=== PATIENT | male | born 1940 | race Two or more races ===

== ENCOUNTER 2017-08-25 22:07 | Inpatient (IN) | payer OTHER ==
[~2017-08-25] VITALS: Ht 165.1 cm; Wt 86.6 kg
[~2017-08-25 22:07] MED LIST: ASPI81CH43 PO; FLOMAX; GLYB5TAB8 PO; LISI-275 PO; METF-370 PO; METO-5 PO; OMEP20CA74 PO; SIMV-13 PO
[2017-08-25] MEDS ORDERED: ONDANSETRON HCL 4 MG/2 ML VIAL IV ONE (22:30)
[2017-08-25] MEDS ORDERED: ASPirin 81 mg TAB PO ONE (22:30)
[2017-08-25] MEDS ORDERED: HYDROmorphone HCL 2 MG/ML VL IV ONE (22:30)
[2017-08-25 22:48] LABS: Basophils # (auto) 0 uL; Basophils % (auto) 0.2 % (0.0-2.0); Eosinophils # (auto) 0 uL; Eosinophils % (auto) 0.1 % (0.0-7.0); Hematocrit 40.7 % (41.0-53.0); Hemoglobin 13.4 g/dL (13.5-17.5); Lymphocytes # (auto) 1.1 uL; Lymphocytes % (auto) 9.7 % (10.0-50.0); Mean Corpuscular Hemoglobin 29.7 pg (28.0-32.0); Mean Corpuscular Volume 89.9 fL (80.0-100.0); Monocytes # (auto) 0.4 uL; Monocytes % (auto) 3.2 % (0.0-12.0); Neutrophils # (auto) 9.7 uL; Neutrophils % (auto) 86.8 % (37.0-80.0); Platelet Count (auto) 287 10^3/uL (140-450); Red Blood Cells 4.52 10^6/uL (4.5-5.90); Red Cell Distribution Width 13.8 % (11.8-14.3); White Blood Cell 11.2 10^3/uL (4.4-10.8)
[2017-08-25 23:02] LABS: INR 0.99 (0.9-1.15); Partial Thromboplastin Time 26.8 sec (22.64-33.71); Prothrombin Time 10.8 sec (9.37-12.3)
[2017-08-25 23:03] LABS: Albumin 4.1 g/dL (3.4-5.0); Calcium 9.7 mg/dL (8.5-10.1); Magnesium 2.3 mg/dL (1.6-2.6); Potassium 4.1 mmol/L (3.5-5.1)
[2017-08-25 23:08] LABS: Bilirubin, Total 0.7 mg/dL (0.2-1.0); Total Protein 8.5 g/dL (6.4-8.2)
[2017-08-26] MEDS ORDERED: HYDROmorphone HCL 2 MG/ML VL IV ONE (01:30)
[2017-08-26] MEDS ORDERED: ONDANSETRON HCL 4 MG/2 ML VIAL IV ONE (01:30)
[2017-08-26] MEDS ORDERED: DEXTROSE (50%) 50ML SYRG IV PRN (04:15)
[2017-08-26] MEDS ORDERED: AZITHROMYCIN 500MG/ 250ML 250 ML IV ONE (04:30)
[2017-08-26 04:51] LABS: Basophils # (auto) 0 uL; Basophils % (auto) 0.1 % (0.0-2.0); Eosinophils # (auto) 0 uL; Hematocrit 41.2 % (41.0-53.0); Hemoglobin 13.4 g/dL (13.5-17.5); Lymphocytes # (auto) 0.7 uL; Lymphocytes % (auto) 5.9 % (10.0-50.0); Mean Corpuscular Hemoglobin 29.7 pg (28.0-32.0); Mean Corpuscular Hgb Conc. 32.5 g/dL (32.0-36.0); Mean Corpuscular Volume 91.2 fL (80.0-100.0); Monocytes # (auto) 0.7 uL; Monocytes % (auto) 6.5 % (0.0-12.0); Neutrophils # (auto) 9.8 uL; Neutrophils % (auto) 87.5 % (37.0-80.0); Platelet Count (auto) 268 10^3/uL (140-450); Red Blood Cells 4.52 10^6/uL (4.5-5.90); Red Cell Distribution Width 13.9 % (11.8-14.3); White Blood Cell 11.2 10^3/uL (4.4-10.8)
[2017-08-26] MEDS: HYDROcodone-ACET 5/325MG TAB PO PRN ×2 (06:16→11:30)
[2017-08-26] MEDS ORDERED: AZITHROMYCIN 250 MG TAB PO ONE (06:30)
[2017-08-26] MEDS ORDERED: InsuLIN REG 1unit/0.01ml Soln (100units/ml) SC SCH ×2 (07:00→22:00)
[2017-08-26] MEDS ORDERED: ACCU-CHEK COMFORT CURVE STRIP VI SCH (07:00)
[2017-08-26 07:07] LABS: BUN/Creatinine Ratio 20.3; Calcium 9.6 mg/dL (8.5-10.1); Potassium 4.7 mmol/L (3.5-5.1)
[2017-08-26] MEDS: ACETAMINOPHEN 500 MG TAB PO PRN (07:56)
[2017-08-26] MEDS ORDERED: ADENOSINE 76 MG in GIVE UN-DILUTED 0 ML IV ONE (08:30)
[2017-08-26 09:10] VITALS: BP 173/93
[2017-08-26 09:48] LABS: Urine Bacteria FEW /hpf (None Seen); Urine Blood Negative /uL (Negative); Urine Mucus FEW (None Seen); Urine Specific Gravity 1.026 (1.001-1.035); Urine WBC 2 /hpf (0 - 3)
[2017-08-26] MEDS: ASPirin-EC 81 mg tab PO SCH (10:17)
[2017-08-26] MEDS: LISINOPRIL 5 MG TAB PO SCH (10:17)
[2017-08-26] MEDS: FAMOTIDINE (10MG/ML) 2ML VL IV SCH (13:10)
[2017-08-26] MEDS: MORPHINE SULFATE 10 MG/ML INJ 1ML SDV IV PRN (15:36)
[2017-08-26] MEDS ORDERED: METOPROLOL TARTRATE 1MG/1ML-5ML VIAL IV PRN (16:15)
[2017-08-26 17:00] VITALS: BP 163/82
[2017-08-26] MEDS: D5W/SOD CHL 0.45% 1,000 ML IV SCH (17:15)
[2017-08-26] MEDS: cefTRIAXone 1GM/10ml IVPUSH 10 ML IV SCH (17:15)
[2017-08-26] MEDS: metroNIDAZOLE 500MG/100ML 100 ML IV SCH ×2 (17:16→23:53)
[2017-08-26] MEDS: TAMSULOSIN HYDROCHLORIDE 0.4 MG CAP PO SCH (18:00)
[2017-08-26 20:00] VITALS: BP 131/81
[2017-08-26 21:30] VITALS: BP 131/81
[2017-08-27] VITALS (34 sets, daily range): BP systolic 102–148; BP diastolic 51–85
[2017-08-27] MEDS: D5W/SOD CHL 0.45% 1,000 ML IV SCH ×3 (01:23→18:15)
[2017-08-27] MEDS: ACETAMINOPHEN 500 MG TAB PO PRN (05:02)
[2017-08-27] MEDS: MORPHINE SULFATE 10 MG/ML INJ 1ML SDV IV PRN ×2 (05:33→14:46)
[2017-08-27 06:22] LABS: Basophils # (auto) 0 uL; Basophils % (auto) 0.3 % (0.0-2.0); Eosinophils # (auto) 0 uL; Hematocrit 42.8 % (41.0-53.0); Hemoglobin 14.2 g/dL (13.5-17.5); Lymphocytes % (auto) 11.3 % (10.0-50.0); Mean Corpuscular Hemoglobin 29.9 pg (28.0-32.0); Mean Corpuscular Hgb Conc. 33.1 g/dL (32.0-36.0); Mean Corpuscular Volume 90.6 fL (80.0-100.0); Monocytes # (auto) 1.3 uL; Monocytes % (auto) 14.8 % (0.0-12.0); Neutrophils # (auto) 6.4 uL; Neutrophils % (auto) 73.6 % (37.0-80.0); Platelet Count (auto) 265 10^3/uL (140-450); Red Blood Cells 4.73 10^6/uL (4.5-5.90); Red Cell Distribution Width 14.3 % (11.8-14.3); White Blood Cell 8.7 10^3/uL (4.4-10.8)
[2017-08-27 06:51] LABS: BUN/Creatinine Ratio 17.9; Potassium 3.9 mmol/L (3.5-5.1)
[2017-08-27] MEDS: metroNIDAZOLE 500MG/100ML 100 ML IV SCH ×2 (09:33→16:24)
[2017-08-27] MEDS: cefTRIAXone 1GM/10ml IVPUSH 10 ML IV SCH (09:36)
[2017-08-27] MEDS ORDERED: AZITHROMYCIN 250 MG TAB PO SCH (10:00)
[2017-08-27] MEDS: LISINOPRIL 5 MG TAB PO SCH (10:00)
[2017-08-27] MEDS: ASPirin-EC 81 mg tab PO SCH (10:00)
[2017-08-27] MEDS: FAMOTIDINE (10MG/ML) 2ML VL IV SCH (10:00)
[2017-08-27] MEDS ORDERED: SUCCINYLCHOLINE CHLORIDE 20 MG/ML 10ML VIAL IV ONE (11:15)
[2017-08-27] MEDS ORDERED: fentaNYL CITRATE 5 ML ONE (11:24)
[2017-08-27] MEDS ORDERED: MIDAZOLAM HCL 1MG/1ML-2 ML VIAL ONE ×3 (11:24→12:21)
[2017-08-27] MEDS ORDERED: ROCURONIUM 10MG/ML 10ML VIAL IV ONE (11:30)
[2017-08-27] MEDS ORDERED: PROPOFOL 10 MG/ML 20 ML IV ONE (11:36)
[2017-08-27] MEDS ORDERED: MIDAZOLAM DRIP 50 mg/50mL 50 ML IV ONE (13:00)
[2017-08-27] MEDS ORDERED: MIDAZOLAM DRIP 50 mg/50mL 50 ML IV SCH (14:57)
[2017-08-27] MEDS: TAMSULOSIN HYDROCHLORIDE 0.4 MG CAP PO SCH (18:00)
[2017-08-27] MEDS ORDERED: SODIUM CHLORIDE 0.9% 500 ML IV ONE (18:15)
[2017-08-28] VITALS (46 sets, daily range): BP systolic 100–172; BP diastolic 41–94
[2017-08-28] MEDS: metroNIDAZOLE 500MG/100ML 100 ML IV SCH ×3 (00:21→17:10)
[2017-08-28 04:08] LABS: Basophils # (auto) 0 uL; Basophils % (auto) 0.4 % (0.0-2.0); Eosinophils # (auto) 0 uL; Hematocrit 38.3 % (41.0-53.0); Hemoglobin 12.7 g/dL (13.5-17.5); Lymphocytes # (auto) 0.9 uL; Lymphocytes % (auto) 11.8 % (10.0-50.0); Mean Corpuscular Hemoglobin 29.8 pg (28.0-32.0); Mean Corpuscular Hgb Conc. 33.1 g/dL (32.0-36.0); Mean Corpuscular Volume 90.1 fL (80.0-100.0); Monocytes # (auto) 1.1 uL; Monocytes % (auto) 13.5 % (0.0-12.0); Neutrophils # (auto) 5.9 uL; Neutrophils % (auto) 74.3 % (37.0-80.0); Nucleated Red Blood Cells % 0.1 %; Platelet Count (auto) 186 10^3/uL (140-450); Red Blood Cells 4.25 10^6/uL (4.5-5.90); Red Cell Distribution Width 13.7 % (11.8-14.3); White Blood Cell 7.9 10^3/uL (4.4-10.8)
[2017-08-28 04:42] LABS: Albumin 2.8 g/dL (3.4-5.0); BUN/Creatinine Ratio 25.3; Bilirubin, Total 1.2 mg/dL (0.2-1.0); Calcium 8.3 mg/dL (8.5-10.1); Potassium 3.8 mmol/L (3.5-5.1); Total Protein 6.8 g/dL (6.4-8.2)
[2017-08-28] MEDS: D5W/SOD CHL 0.45% 1,000 ML IV SCH (05:45)
[2017-08-28] MEDS: ALBUMIN 25% 50 ML IV SCH ×3 (09:13→18:10)
[2017-08-28] MEDS: cefTRIAXone 1GM/10ml IVPUSH 10 ML IV SCH (09:14)
[2017-08-28] MEDS: LISINOPRIL 5 MG TAB PO SCH (10:00)
[2017-08-28] MEDS: ASPirin-EC 81 mg tab PO SCH (10:00)
[2017-08-28] MEDS: MORPHINE SULFATE 10 MG/ML INJ 1ML SDV IV PRN ×2 (10:11→23:42)
[2017-08-28] MEDS: FAMOTIDINE (10MG/ML) 2ML VL IV SCH (10:27)
[2017-08-28] MEDS ORDERED: FUROSEMIDE 40 MG/4 ML VIAL IV ONE (10:30)
[2017-08-28] MEDS ORDERED: D5W/SOD CHL 0.45% 1,000 ML IV SCH (10:30)
[2017-08-28] MEDS: POTASSIUM CHL 20MEQ/100ML 100 ML IV SCH ×3 (10:41→18:36)
[2017-08-28] MEDS ORDERED: METOLAZONE 5 MG TAB PO ONE (15:30)
[2017-08-28] MEDS: TAMSULOSIN HYDROCHLORIDE 0.4 MG CAP PO SCH (18:00)
[2017-08-28] MEDS ORDERED: PPN PER PHARMACY 0 ML IV SCH (18:30)
[2017-08-28] MEDS ORDERED: AMINO ACID ELECTROLYTE INFUSIO 1,000 ML IV SCH (20:30)
[2017-08-28] MEDS ORDERED: SODIUM PHOSP 40 MEQ in D5W 5% 250 ML IV ONE (20:30)
[2017-08-28] MEDS: FUROSEMIDE 40 MG/4 ML VIAL IV SCH (22:00)
[2017-08-28 23:03] LABS: Basophils # (auto) 0 uL; Basophils % (auto) 0.4 % (0.0-2.0); Eosinophils # (auto) 0 uL; Hematocrit 35.6 % (41.0-53.0); Hemoglobin 11.9 g/dL (13.5-17.5); Lymphocytes # (auto) 0.8 uL; Lymphocytes % (auto) 8.7 % (10.0-50.0); Mean Corpuscular Hemoglobin 30.2 pg (28.0-32.0); Mean Corpuscular Hgb Conc. 33.6 g/dL (32.0-36.0); Mean Corpuscular Volume 89.9 fL (80.0-100.0); Monocytes # (auto) 1.1 uL; Monocytes % (auto) 11.5 % (0.0-12.0); Neutrophils # (auto) 7.2 uL; Neutrophils % (auto) 79.4 % (37.0-80.0); Platelet Count (auto) 173 10^3/uL (140-450); Red Blood Cells 3.96 10^6/uL (4.5-5.90); Red Cell Distribution Width 13.8 % (11.8-14.3); White Blood Cell 9.1 10^3/uL (4.4-10.8)
[2017-08-29] VITALS (18 sets, daily range): BP systolic 35–148; BP diastolic 52–101
[2017-08-29] MEDS: metroNIDAZOLE 500MG/100ML 100 ML IV SCH ×4 (00:08→23:57)
[2017-08-29 04:30] LABS: Albumin 3.3 g/dL (3.4-5.0); BUN/Creatinine Ratio 25.3; Bilirubin, Total 0.9 mg/dL (0.2-1.0); Calcium 8.2 mg/dL (8.5-10.1); Magnesium 2.3 mg/dL (1.6-2.6); Phosphorus 3.3 mg/dL (2.5-4.90); Potassium 3.9 mmol/L (3.5-5.1); Pre Albumin 7.8 mg/dL (20.0-40.0); Total Protein 7.1 g/dL (6.4-8.2)
[2017-08-29] MEDS: POTASSIUM CHL 20MEQ/100ML 100 ML IV SCH ×2 (06:00→18:41)
[2017-08-29] MEDS: FUROSEMIDE 40 MG/4 ML VIAL IV SCH ×2 (06:00→18:00)
[2017-08-29 08:00] LABS: Basophils # (auto) 0.1 uL; Basophils % (auto) 1.1 % (0.0-2.0); Eosinophils # (auto) 0 uL; Eosinophils % (auto) 0.1 % (0.0-7.0); Hematocrit 37.3 % (41.0-53.0); Hemoglobin 12.5 g/dL (13.5-17.5); Lymphocytes # (auto) 1.1 uL; Lymphocytes % (auto) 11.1 % (10.0-50.0); Mean Corpuscular Hemoglobin 30.1 pg (28.0-32.0); Mean Corpuscular Hgb Conc. 33.5 g/dL (32.0-36.0); Mean Corpuscular Volume 89.9 fL (80.0-100.0); Monocytes # (auto) 1.1 uL; Monocytes % (auto) 10.7 % (0.0-12.0); Neutrophils # (auto) 7.7 uL; Platelet Count (auto) 174 10^3/uL (140-450); Red Blood Cells 4.15 10^6/uL (4.5-5.90); Red Cell Distribution Width 13.8 % (11.8-14.3)
[2017-08-29] MEDS: cefTRIAXone 1GM/10ml IVPUSH 10 ML IV SCH (09:38)
[2017-08-29] MEDS: FAMOTIDINE (10MG/ML) 2ML VL IV SCH (09:38)
[2017-08-29] MEDS: ASPirin-EC 81 mg tab PO SCH (09:38)
[2017-08-29] MEDS: LISINOPRIL 5 MG TAB PO SCH (09:40)
[2017-08-29] MEDS: MORPHINE SULFATE 10 MG/ML INJ 1ML SDV IV PRN ×2 (09:41→21:15)
[2017-08-29] MEDS: METOCLOPRAMIDE HCL 5MG/ml INJ 2ml VIAL IV SCH (18:43)
[2017-08-29] MEDS: TAMSULOSIN HYDROCHLORIDE 0.4 MG CAP PO SCH (18:43)
[2017-08-29] MEDS ORDERED: PPN PER PHARMACY IV NR ×10 (20:00)
[2017-08-29] MEDS ORDERED: FUROSEMIDE 40 MG/4 ML VIAL IV SCH (22:00)
[2017-08-30 04:00] VITALS: BP 124/50
[2017-08-30] MEDS: POTASSIUM CHL 20MEQ/100ML 100 ML IV SCH ×2 (05:37→17:58)
[2017-08-30 05:56] LABS: Albumin 3.1 g/dL (3.4-5.0); BUN/Creatinine Ratio 39.2; Bilirubin, Total 0.9 mg/dL (0.2-1.0); Calcium 8.6 mg/dL (8.5-10.1); Magnesium 2.5 mg/dL (1.6-2.6); Phosphorus 2.1 mg/dL (2.5-4.90); Potassium 3.1 mmol/L (3.5-5.1); Total Protein 7.6 g/dL (6.4-8.2)
[2017-08-30 08:00] VITALS: BP 136/69
[2017-08-30] MEDS: FAMOTIDINE (10MG/ML) 2ML VL IV SCH (09:02)
[2017-08-30] MEDS: METOCLOPRAMIDE HCL 5MG/ml INJ 2ml VIAL IV SCH ×2 (09:02)
[2017-08-30] MEDS: FUROSEMIDE 40 MG/4 ML VIAL IV SCH ×2 (09:02→17:59)
[2017-08-30] MEDS: cefTRIAXone 1GM/10ml IVPUSH 10 ML IV SCH (09:03)
[2017-08-30] MEDS: metroNIDAZOLE 500MG/100ML 100 ML IV SCH (09:03)
[2017-08-30] MEDS: MORPHINE SULFATE 10 MG/ML INJ 1ML SDV IV PRN ×2 (09:06→18:57)
[2017-08-30] MEDS: LISINOPRIL 5 MG TAB PO SCH (10:00)
[2017-08-30] MEDS: ASPirin-EC 81 mg tab PO SCH (11:16)
[2017-08-30] MEDS ORDERED: DEXTROSE (50%) 50ML SYRG IV SCH (11:30)
[2017-08-30] MEDS ORDERED: POTASSIUM PHOSPHATE 22 MEQ in SODIUM CHL 0.9% 100 ML IV ONE (12:00)
[2017-08-30] MEDS ORDERED: POTASSIUM CHL 20MEQ/100ML 100 ML IV ONE (12:15)
[2017-08-30 12:17] VITALS: BP 112/54
[2017-08-30] MEDS ORDERED: METOCLOPRAMIDE HCL 10 MG TAB PO SCH (12:18)
[2017-08-30] MEDS: ACCU-CHEK COMFORT CURVE STRIP VI SCH ×2 (12:25→18:00)
[2017-08-30] MEDS: InsuLIN REG 1unit/0.01ml Soln (100units/ml) SC SCH ×2 (12:25→18:00)
[2017-08-30 16:12] VITALS: BP 117/60
[2017-08-30] MEDS: TAMSULOSIN HYDROCHLORIDE 0.4 MG CAP PO SCH (17:59)
[2017-08-30] MEDS ORDERED: PPN PER PHARMACY IV NR ×10 (20:00)
[2017-08-30] MEDS: HYDROcodone-ACET 5/325MG TAB PO PRN (20:02)
[2017-08-30 20:26] VITALS: BP 147/86
[2017-08-30] MEDS: CARVEDILOL 3.125 MG TAB PO SCH (22:05)
[2017-08-30] MEDS: ONDANSETRON HCL 4 MG/2 ML VIAL IV PRN (22:43)
[2017-08-31] VITALS: BP 122/60
[2017-08-31 05:57] LABS: BUN/Creatinine Ratio 39.6; Bilirubin, Total 0.6 mg/dL (0.2-1.0); Calcium 9.3 mg/dL (8.5-10.1); Magnesium 2.6 mg/dL (1.6-2.6); Phosphorus 4.1 mg/dL (2.5-4.90); Potassium 3.2 mmol/L (3.5-5.1); Total Protein 7.5 g/dL (6.4-8.2)
[2017-08-31] MEDS: InsuLIN REG 1unit/0.01ml Soln (100units/ml) SC SCH ×4 (06:00→18:05)
[2017-08-31] MEDS: POTASSIUM CHL 20MEQ/100ML 100 ML IV SCH ×2 (06:00→10:04)
[2017-08-31] MEDS: FUROSEMIDE 40 MG/4 ML VIAL IV SCH (06:11)
[2017-08-31] MEDS: ONDANSETRON HCL 4 MG/2 ML VIAL IV PRN ×2 (06:12→15:11)
[2017-08-31] MEDS: ACCU-CHEK COMFORT CURVE STRIP VI SCH ×4 (06:12→18:05)
[2017-08-31] MEDS ORDERED: POTASSIUM CHL 10% (20 MEQ/15ML) 15ml ORAL SOLN PO ONE (07:00)
[2017-08-31 08:00] VITALS: BP 151/69
[2017-08-31] MEDS ORDERED: POTASSIUM CHL 20 Meq TABLET PO ONE ×3 (08:52→11:15)
[2017-08-31] MEDS: LISINOPRIL 5 MG TAB PO SCH (10:16)
[2017-08-31] MEDS: ASPirin-EC 81 mg tab PO SCH (10:19)
[2017-08-31] MEDS: CARVEDILOL 3.125 MG TAB PO SCH ×2 (10:19→21:44)
[2017-08-31 11:52] VITALS: BP 136/61
[2017-08-31] MEDS: POTASSIUM CHL 20 Meq TABLET PO ONE ×2 (15:07→18:50)
[2017-08-31 17:25] VITALS: BP 122/77
[2017-08-31] MEDS: TAMSULOSIN HYDROCHLORIDE 0.4 MG CAP PO SCH (18:50)
[2017-08-31 22:18] VITALS: BP 121/68
[2017-09-01 04:26] VITALS: BP 128/80
[2017-09-01] MEDS: ACCU-CHEK COMFORT CURVE STRIP VI SCH ×3 (05:15→12:51)
[2017-09-01] MEDS: InsuLIN REG 1unit/0.01ml Soln (100units/ml) SC SCH ×3 (05:16→12:51)
[2017-09-01 05:35] LABS: Basophils # (auto) 0 uL; Basophils % (auto) 0.2 % (0.0-2.0); Eosinophils # (auto) 0 uL; Eosinophils % (auto) 0.2 % (0.0-7.0); Hematocrit 41.8 % (41.0-53.0); Hemoglobin 14.2 g/dL (13.5-17.5); Lymphocytes # (auto) 1.3 uL; Lymphocytes % (auto) 12.7 % (10.0-50.0); Mean Corpuscular Hemoglobin 30.3 pg (28.0-32.0); Mean Corpuscular Hgb Conc. 33.9 g/dL (32.0-36.0); Mean Corpuscular Volume 89.3 fL (80.0-100.0); Monocytes # (auto) 1.1 uL; Monocytes % (auto) 11.4 % (0.0-12.0); Neutrophils # (auto) 7.5 uL; Neutrophils % (auto) 75.5 % (37.0-80.0); Platelet Count (auto) 273 10^3/uL (140-450); Red Blood Cells 4.68 10^6/uL (4.5-5.90); Red Cell Distribution Width 13.5 % (11.8-14.3); White Blood Cell 9.9 10^3/uL (4.4-10.8)
[2017-09-01 06:10] LABS: Albumin 3.5 g/dL (3.4-5.0); BUN/Creatinine Ratio 39.6; Bilirubin, Total 0.7 mg/dL (0.2-1.0); Calcium 10.2 mg/dL (8.5-10.1); Potassium 4.2 mmol/L (3.5-5.1); Total Protein 8.4 g/dL (6.4-8.2)
[2017-09-01 09:00] VITALS: BP 96/60
[2017-09-01] MEDS: CARVEDILOL 3.125 MG TAB PO SCH (10:00)
[2017-09-01] MEDS ORDERED: FUROSEMIDE 40 MG TAB PO SCH (10:00)
[2017-09-01] MEDS ORDERED: POTASSIUM CHL 20 Meq TABLET PO SCH (10:00)
[2017-09-01] MEDS: LISINOPRIL 5 MG TAB PO SCH (10:00)
[2017-09-01] MEDS: ASPirin-EC 81 mg tab PO SCH (10:32)
[2017-09-01 13:40] VITALS: BP 113/73
[2017-09-01] MEDS ORDERED: ASP81EC PO (14:36)
[2017-09-01] MEDS ORDERED: LISI-275 PO (14:36)
[2017-09-01] MEDS ORDERED: FURO40TA4 PO (14:36)
[2017-09-01] MEDS ORDERED: CAR3125T PO (14:36)
[2017-09-01] MEDS ORDERED: ATOR20TA50 PO (14:36)
[2017-09-01] MEDS ORDERED: TAM04C PO (14:36)
[2017-09-01 16:55] VITALS: BP 113/73
== END 2017-09-01 17:30 | disposition home health service (06) | DRG 353 ==
LOC: ER 22:07 → TELE 22:08 → EDUNIT# 22:08 → TELE-WESTW 08-26 14:26 → ICU WEST 08-27 13:00 → DOU IN ICU 08-29 14:50 → CENTRAL 08-31 17:11
PROVIDERS: ADMIT Nurse Practitioner Family; ATTEND Hospitalist
PROC: 5A1935Z Respiratory Ventilation, Less than 24 Consecutive Hours (ICD-10-PCS; 2017-08-27)
PROC: 0BH17EZ Insertion of Endotracheal Airway into Trachea, Via Natural or Artificial Opening (ICD-10-PCS; 2017-08-27)
PROC: 0WQF0ZZ Repair Abdominal Wall, Open Approach (ICD-10-PCS; principal; 2017-08-27 11:15)
DX: K42.0 Umbilical hernia with obstruction, without gangrene (principal); I21.4 Non-ST elevation (NSTEMI) myocardial infarction; J96.90 Respiratory failure, unspecified, unspecified whether with hypoxia or hypercapnia; I11.0 Hypertensive heart disease with heart failure; I50.9 Heart failure, unspecified; K55.9 Vascular disorder of intestine, unspecified; I42.0 Dilated cardiomyopathy; I25.110 Atherosclerotic heart disease of native coronary artery with unstable angina pectoris; I27.20 Pulmonary hypertension, unspecified; M48.061 Spinal stenosis, lumbar region without neurogenic claudication; E11.9 Type 2 diabetes mellitus without complications; E78.5 Hyperlipidemia, unspecified; J40 Bronchitis, not specified as acute or chronic; N40.0 Benign prostatic hyperplasia without lower urinary tract symptoms; Z95.1 Presence of aortocoronary bypass graft; I45.10 Unspecified right bundle-branch block; Z79.84 Long term (current) use of oral hypoglycemic drugs; I25.5 Ischemic cardiomyopathy; R00.0 Tachycardia, unspecified
CPT/HCPCS: 36415; 36600; 71045; 74176; 80048; 80053; 81001; 82040; 82805; 82962; 83735; 83880; 84100; 84132; 84443; 84478; 84484; 85025; 85610; 85730; 87070; 87205; 93005; 93017; 93306; 94002; 94003; 96365; 96375; 96376; 97116; 97163; 97530; J0153; J0330; J1815; J2250; J2405; J2704; J3480; J3490; J7060; J7131

== ENCOUNTER 2018-03-23 14:40 | Inpatient (IN) | payer OTHER ==
[~2018-03-23] VITALS: Ht 165.1 cm; Wt 80.3 kg
[~2018-03-23 14:40] MED LIST changes: +ASP81EC PO; +ATOR20TA50 PO; +CAR3125T PO; +FURO40TA4 PO; +TAM04C PO
[2018-03-23] MEDS ORDERED: ASPirin 81 mg TAB PO ONE (15:15)
[2018-03-23 15:47] LABS: Alanine Aminotransferase 24 U/L (16-61); Albumin 3.8 g/dL (3.4-5.0); Alkaline Phosphatase 77 U/L (45-117); Anion Gap 7 (5-15); Aspartate Aminotransferase 15 U/L (15-37); BUN/Creatinine Ratio 16.9; Bilirubin, Total 0.8 mg/dL (0.2-1.0); Blood Urea Nitrogen 14 mg/dL (7-18); Calcium 8.5 mg/dL (8.5-10.1); Carbon Dioxide 24 mmol/L (21-32); Chloride 103 mmol/L (98-107); GFR African American 116 mL/min; GFR Non-African American 96 mL/min; Glucose 119 mg/dL (74-106); Potassium 4.3 mmol/L (3.5-5.1); Sodium 134 mmol/L (136-145)
[2018-03-23 15:54] LABS: Basophils # (auto) 0 uL; Basophils % (auto) 0.4 % (0.0-2.0); Eosinophils # (auto) 0 uL; Eosinophils % (auto) 0.8 % (0.0-7.0); Hematocrit 40.9 % (41.0-53.0); Hemoglobin 13.4 g/dL (13.5-17.5); Lymphocytes # (auto) 1.6 uL; Lymphocytes % (auto) 27.9 % (10.0-50.0); Mean Corpuscular Hemoglobin 29.8 pg (28.0-32.0); Mean Corpuscular Hgb Conc. 32.8 g/dL (32.0-36.0); Mean Corpuscular Volume 90.9 fL (80.0-100.0); Monocytes # (auto) 0.5 uL; Monocytes % (auto) 8.1 % (0.0-12.0); Neutrophils # (auto) 3.6 uL; Neutrophils % (auto) 62.8 % (37.0-80.0); Platelet Count (auto) 211 10^3/uL (140-450); Red Cell Distribution Width 14.5 % (11.8-14.3); White Blood Cell 5.7 10^3/uL (4.4-10.8)
[2018-03-23] MEDS ORDERED: MORPHINE SULF INJ 2 MG/ML SYRINGE 1ML IV ONE (19:45)
[2018-03-23] MEDS ORDERED: ONDANSETRON HCL 4 MG/2 ML VIAL IV ONE (19:45)
[2018-03-23 20:00] LABS: INR 0.99 (0.9-1.15); Partial Thromboplastin Time 28.2 sec (23.78-33.04); Prothrombin Time 10.6 sec (9.27-12.13)
[2018-03-23] MEDS ORDERED: ONDANSETRON HCL 4 MG/2 ML VIAL IV PRN (20:30)
[2018-03-23] MEDS ORDERED: LORazepam 0.5 MG TAB PO PRN (20:30)
[2018-03-23] MEDS ORDERED: HYDROcodone-ACET 5/325MG TAB PO PRN (20:30)
[2018-03-23] MEDS ORDERED: ACETAMINOPHEN 500 MG TAB PO PRN (20:30)
[2018-03-23] MEDS ORDERED: TEMAZEPAM 15 MG CAP PO PRN (20:30)
[2018-03-23] MEDS ORDERED: PROMETHAZINE HCL 25 MG/ML 1ML ONE (20:37)
[2018-03-23] MEDS ORDERED: PROMETHAZINE HCL 25 MG/ML 1ML IV ONE (20:45)
[2018-03-23] MEDS ORDERED: METOPROLOL TARTRATE 50 MG TAB PO SCH (22:00)
[2018-03-23] MEDS: ATORVASTATIN 20 MG TAB PO SCH (23:28)
[2018-03-23] MEDS ORDERED: FUROSEMIDE 20 MG/2 ML VIAL IV ONE (23:45)
[2018-03-23] MEDS ORDERED: MORPHINE SULF INJ 2 MG/ML SYRINGE 1ML IV PRN (23:45)
[2018-03-23] MEDS ORDERED: NITROGLYCERIN 0.4 MG SL TAB SL PRN (23:45)
[2018-03-24 02:17] VITALS: BP 115/70
[2018-03-24 02:33] VITALS: BP 115/70
[2018-03-24 05:00] VITALS: BP 130/63
[2018-03-24 07:27] LABS: Basophils # (auto) 0 uL; Basophils % (auto) 0.3 % (0.0-2.0); Eosinophils # (auto) 0.1 uL; Eosinophils % (auto) 1.4 % (0.0-7.0); Hematocrit 40.7 % (41.0-53.0); Hemoglobin 13.5 g/dL (13.5-17.5); Lymphocytes # (auto) 2.3 uL; Lymphocytes % (auto) 34.6 % (10.0-50.0); Mean Corpuscular Hemoglobin 30.5 pg (28.0-32.0); Mean Corpuscular Hgb Conc. 33.2 g/dL (32.0-36.0); Mean Corpuscular Volume 91.8 fL (80.0-100.0); Monocytes # (auto) 0.8 uL; Monocytes % (auto) 11.9 % (0.0-12.0); Neutrophils # (auto) 3.4 uL; Neutrophils % (auto) 51.8 % (37.0-80.0); Nucleated Red Blood Cells % 0.1 %; Platelet Count (auto) 187 10^3/uL (140-450); Red Blood Cells 4.43 10^6/uL (4.5-5.90); Red Cell Distribution Width 14.7 % (11.8-14.3); White Blood Cell 6.5 10^3/uL (4.4-10.8)
[2018-03-24 07:58] LABS: Potassium 4.4 mmol/L (3.5-5.1)
[2018-03-24 09:00] VITALS: BP 124/77
[2018-03-24] MEDS: HYDROmorphone HCL 2 MG/ML VL IV PRN ×2 (09:14→13:00)
[2018-03-24] MEDS ORDERED: LISINOPRIL 5 MG TAB PO SCH (10:00)
[2018-03-24] MEDS ORDERED: METOPROLOL TARTRATE 50 MG TAB PO SCH (10:00)
[2018-03-24] MEDS ORDERED: ASPirin-EC 81 mg tab PO SCH (10:00)
[2018-03-24] MEDS ORDERED: FUROSEMIDE 20 MG TAB PO SCH (10:00)
[2018-03-24] MEDS: ATORVASTATIN 20 MG TAB PO SCH (10:38)
[2018-03-24 10:55] LABS: Urine Bacteria NONE SEEN /hpf (None Seen); Urine Blood TRACE /uL (Negative); Urine Specific Gravity 1.016 (1.001-1.035); Urine WBC 46 /hpf (0 - 3)
[2018-03-24 13:00] VITALS: BP 120/74
[2018-03-24] MEDS ORDERED: TAMSULOSIN HYDROCHLORIDE 0.4 MG CAP PO SCH (18:00)
== END 2018-03-24 15:00 | disposition home or self-care (01) | DRG 391 ==
LOC: ER 14:49 → TELE 14:50 → TELE-EAST 03-24 00:47
PROVIDERS: ADMIT Nurse Practitioner Family; ATTEND Hospitalist
DX: K57.30 Diverticulosis of large intestine without perforation or abscess without bleeding (principal); I50.43 Acute on chronic combined systolic (congestive) and diastolic (congestive) heart failure; E87.1 Hypo-osmolality and hyponatremia; E11.9 Type 2 diabetes mellitus without complications; E78.5 Hyperlipidemia, unspecified; I11.0 Hypertensive heart disease with heart failure; I25.10 Atherosclerotic heart disease of native coronary artery without angina pectoris; I25.5 Ischemic cardiomyopathy; J44.9 Chronic obstructive pulmonary disease, unspecified; L29.9 Pruritus, unspecified; Z79.84 Long term (current) use of oral hypoglycemic drugs; Z79.899 Other long term (current) drug therapy; Z82.49 Family history of ischemic heart disease and other diseases of the circulatory system; Z83.3 Family history of diabetes mellitus; Z82.5 Family history of asthma and other chronic lower respiratory diseases; Z85.46 Personal history of malignant neoplasm of prostate; Z87.891 Personal history of nicotine dependence; Z92.3 Personal history of irradiation; Z95.1 Presence of aortocoronary bypass graft
CPT/HCPCS: 36415; 71046; 74176; 80048; 80053; 81001; 83036; 83735; 83880; 84443; 84484; 85025; 85610; 85730; 93005; 94761; 96374; 96375

== ENCOUNTER 2020-05-31 19:59 | Inpatient (IN) | payer OTHER ==
[~2020-05-31] VITALS: Ht 165.1 cm; Wt 90.0 kg
[~2020-05-31 19:59] MED LIST changes: -ASP81EC PO; +ASPI-394 PO
[2020-05-31 22:33] LABS: Basophils # (auto) 0 10 ^3/uL (0-0.2); Basophils % (auto) 0.6 % (0.0-2.0); Eosinophils # (auto) 0.1 10 ^3/uL (0-0.8); Eosinophils % (auto) 1.5 % (0.0-7.0); Hematocrit 35.1 % (41.0-53.0); Lymphocytes # (auto) 1.6 10 ^3/uL (0.4-5.4); Lymphocytes % (auto) 26.1 % (10.0-50.0); Mean Corpuscular Hemoglobin 30.5 pg (28.0-32.0); Mean Corpuscular Hgb Conc. 34.2 g/dL (32.0-36.0); Mean Corpuscular Volume 89.1 fL (80.0-100.0); Monocytes # (auto) 0.7 10 ^3/uL (0-1.3); Monocytes % (auto) 11.6 % (0.0-12.0); Neutrophils # (auto) 3.6 10 ^3/uL (1.6-8.6); Neutrophils % (auto) 60.2 % (37.0-80.0); Nucleated Red Blood Cells % 0.1 %; Platelet Count (auto) 199 10^3/uL (140-450); Red Blood Cells 3.94 10^6/uL (4.5-5.90); Red Cell Distribution Width 13.8 % (11.8-14.3)
[2020-05-31] MEDS ORDERED: ONDANSETRON HCL 4 MG/2 ML VIAL IV ONE (22:45)
[2020-05-31] MEDS ORDERED: MORPHINE SULFATE 4 MG/ML SYR/VIAL IV ONE (22:45)
[2020-05-31] MEDS ORDERED: ATORVASTATIN 20 MG TAB PO ONE (22:45)
[2020-05-31] MEDS ORDERED: ASPirin 81 mg TAB PO ONE (22:45)
[2020-05-31 22:48] LABS: INR 0.99 (0.9-1.15); Partial Thromboplastin Time 25.4 sec (23.0-31.2)
[2020-05-31 22:55] LABS: Alanine Aminotransferase 22 U/L (16-61); Albumin 3.6 g/dL (3.4-5.0); Anion Gap 6 (5-15); Aspartate Aminotransferase 17 U/L (15-37); BUN/Creatinine Ratio 20.5; Blood Urea Nitrogen 18 mg/dL (7-18); Calcium 9.1 mg/dL (8.5-10.1); Carbon Dioxide 25 mmol/L (21-32); Chloride 106 mmol/L (98-107); GFR African American 108 mL/min; GFR Non-African American 89 mL/min; Glucose 114 mg/dL (74-106); Potassium 4.2 mmol/L (3.5-5.1); Sodium 137 mmol/L (136-145)
[2020-05-31 23:01] LABS: Alkaline Phosphatase 83 U/L (45-117); Bilirubin, Total 0.6 mg/dL (0.2-1.0); Total Protein 7.6 g/dL (6.4-8.2)
[2020-06-01] VITALS (7 sets, daily range): BP systolic 122–135; BP diastolic 60–79
[2020-06-01] MEDS ORDERED: ACETAMINOPHEN 325 MG TAB PO PRN ×2 (00:45→03:00)
[2020-06-01] MEDS ORDERED: DEXTROSE (50%) 50ML SYRG IV PRN ×2 (00:45→03:00)
[2020-06-01] MEDS ORDERED: TEMAZEPAM 15 MG CAP PO PRN ×2 (00:45→03:00)
[2020-06-01] MEDS ORDERED: ONDANSETRON HCL 4 MG/2 ML VIAL IV PRN ×2 (00:45→03:00)
[2020-06-01] MEDS ORDERED: NITROGLYCERIN 0.4 MG SL TAB SL PRN ×2 (01:00→03:00)
[2020-06-01] MEDS ORDERED: MORPHINE SULF INJ 2 MG/ML SYRINGE 1ML IV PRN ×2 (01:00→03:00)
[2020-06-01] MEDS ORDERED: ACCU-CHEK COMFORT CURVE STRIP VI SCH (07:00)
[2020-06-01] MEDS ORDERED: InsuLIN REG 1unit/0.01ml Soln (100units/ml) SC SCH (07:00)
[2020-06-01] MEDS: InsuLIN REG 1unit/0.01ml Soln (100units/ml) SC SCH ×4 (07:00→21:52)
[2020-06-01] MEDS: ACCU-CHEK COMFORT CURVE STRIP VI SCH ×4 (07:26→21:52)
[2020-06-01] MEDS ORDERED: CARVEDILOL 3.125 MG TAB PO SCH (10:00)
[2020-06-01] MEDS ORDERED: FAMOTIDINE 20 MG TAB PO SCH (10:00)
[2020-06-01] MEDS: CARVEDILOL 3.125 MG TAB PO SCH ×2 (10:00→21:51)
[2020-06-01] MEDS ORDERED: ASPirin 81 mg TAB PO SCH (10:00)
[2020-06-01] MEDS ORDERED: ENOXAPARIN SOD 40 MG/0.4 ML SYRINGE SC SCH (10:00)
[2020-06-01] MEDS ORDERED: LISINOPRIL 5 MG TAB PO SCH (10:00)
[2020-06-01] MEDS ORDERED: FUROSEMIDE 40 MG TAB PO SCH (10:00)
[2020-06-01] MEDS: LISINOPRIL 5 MG TAB PO SCH (10:01)
[2020-06-01] MEDS: FUROSEMIDE 40 MG TAB PO SCH (10:01)
[2020-06-01] MEDS: FAMOTIDINE 20 MG TAB PO SCH ×2 (10:02→21:52)
[2020-06-01] MEDS: ASPirin 81 mg TAB PO SCH (10:02)
[2020-06-01] MEDS: ENOXAPARIN SOD 40 MG/0.4 ML SYRINGE SC SCH (10:02)
[2020-06-01] MEDS ORDERED: TAMSULOSIN HYDROCHLORIDE 0.4 MG CAP PO SCH ×2 (18:00)
[2020-06-01] MEDS ORDERED: ATORVASTATIN 20 MG TAB PO SCH ×2 (22:00)
[2020-06-02 05:00] VITALS: BP 118/60
[2020-06-02] MEDS: InsuLIN REG 1unit/0.01ml Soln (100units/ml) SC SCH ×2 (06:26→11:30)
[2020-06-02] MEDS: ACCU-CHEK COMFORT CURVE STRIP VI SCH ×2 (06:28→11:30)
[2020-06-02 08:56] VITALS: BP 133/68
[2020-06-02] MEDS: FAMOTIDINE 20 MG TAB PO SCH (10:19)
[2020-06-02] MEDS: ASPirin 81 mg TAB PO SCH (10:20)
[2020-06-02] MEDS: LISINOPRIL 5 MG TAB PO SCH (10:21)
[2020-06-02] MEDS: FUROSEMIDE 40 MG TAB PO SCH (10:22)
[2020-06-02] MEDS: CARVEDILOL 3.125 MG TAB PO SCH (10:23)
[2020-06-02] MEDS: ENOXAPARIN SOD 40 MG/0.4 ML SYRINGE SC SCH (10:27)
[2020-06-02 11:41] VITALS: BP 133/68
[2020-06-02 13:00] VITALS: BP 118/74
== END 2020-06-02 13:05 | disposition home or self-care (01) | DRG 313 ==
LOC: ER 19:59 → TELE-WESTW 20:00 → ER 06-01 01:50
PROVIDERS: ADMIT Nurse Practitioner; ATTEND Hospitalist
DX: R07.89 Other chest pain (principal); I50.43 Acute on chronic combined systolic (congestive) and diastolic (congestive) heart failure; I25.110 Atherosclerotic heart disease of native coronary artery with unstable angina pectoris; E11.9 Type 2 diabetes mellitus without complications; E78.5 Hyperlipidemia, unspecified; I11.0 Hypertensive heart disease with heart failure; I25.5 Ischemic cardiomyopathy; I27.20 Pulmonary hypertension, unspecified; Z82.5 Family history of asthma and other chronic lower respiratory diseases; I25.2 Old myocardial infarction; Z95.1 Presence of aortocoronary bypass graft
CPT/HCPCS: 36415; 71045; 80053; 82962; 83880; 84484; 85025; 85610; 85730; 93005; 93306; 96374; 96375; G0378; J1815; J2405

== ENCOUNTER 2021-12-25 21:50 | Emergency (ER) | payer OTHER, MEDICAID ==
[~2021-12-25] VITALS: Ht 165.1 cm; Wt 79.8 kg
[~2021-12-25 21:50] MED LIST changes: -METO-5 PO; +METO1TAB77 PO
[2021-12-25 22:44] LABS: Basophils # (auto) 0 10 ^3/uL (0-0.2); Basophils % (auto) 0.6 % (0.0-2.0); Eosinophils # (auto) 0 10 ^3/uL (0-0.8); Eosinophils % (auto) 0.5 % (0.0-7.0); Hematocrit 36.2 % (41.0-53.0); Hemoglobin 12.2 g/dL (13.5-17.5); Lymphocytes # (auto) 1.9 10 ^3/uL (0.4-5.4); Lymphocytes % (auto) 29.3 % (10.0-50.0); Mean Corpuscular Hemoglobin 30.5 pg (28.0-32.0); Mean Corpuscular Hgb Conc. 33.8 g/dL (32.0-36.0); Mean Corpuscular Volume 90.1 fL (80.0-100.0); Monocytes # (auto) 0.7 10 ^3/uL (0-1.3); Monocytes % (auto) 10.6 % (0.0-12.0); Neutrophils # (auto) 3.9 10 ^3/uL (1.6-8.6); Red Blood Cells 4.01 10^6/uL (4.5-5.90); Red Cell Distribution Width 13.4 % (11.8-14.3); White Blood Cell 6.6 10^3/uL (4.4-10.8)
[2021-12-25] MEDS ORDERED: OXYCODONE W/ ACETAMINOPHEN 5/325MG TABLET PO ONE (22:45)
[2021-12-25 23:00] LABS: Albumin 3.7 g/dL (3.4-5.0); Calcium 8.8 mg/dL (8.5-10.1); Potassium 4.1 mmol/L (3.5-5.1)
[2021-12-25 23:09] LABS: Bilirubin, Total 0.5 mg/dL (0.2-1.0); Total Protein 7.1 g/dL (6.4-8.2)
[2021-12-26] MEDS ORDERED: [UNRECOGNIZED DRUG - CODE] PO (02:29)
[2021-12-26 02:54] LABS: BUN/Creatinine Ratio 30.6
[2021-12-26 03:00] VITALS: BP 143/66
[2021-12-26] MEDS ORDERED: OXYCODONE W/ ACETAMINOPHEN 5/325MG TABLET PO ONE (03:45)
== END 2021-12-26 07:41 | disposition home or self-care (01) ==
LOC: ER 21:50
DX: K52.9 Noninfective gastroenteritis and colitis, unspecified (principal); I11.0 Hypertensive heart disease with heart failure; I50.9 Heart failure, unspecified; E11.9 Type 2 diabetes mellitus without complications; E78.5 Hyperlipidemia, unspecified; Z87.891 Personal history of nicotine dependence
CPT/HCPCS: 36415; 71045; 74176; 76705; 80053; 83880; 84484; 85025; 93005